=== PATIENT | female | born 1955 | race Caucasian/White ===

== ENCOUNTER 2022-07-20 09:17 | Outpatient (CLI) | payer MEDICARE, SELFPAY ==
--- NOTE | ~2022-07-20 | XR_ITS ---
XR hip RT 2V w AP pelvis 07/20/2022 09:40 Indication: Idiopathic aseptic necrosis. Procedure: AP pelvis and 2 views right hip Comparison: No prior studies for comparison. Findings: There is mild osteoarthritis of the right hip. No fracture or traumatic malalignment. Pelvi c rings are intact. No significant soft tissue abnormality. No foreign bodies. Impression: 1: Mild osteoarthritis of the right hip. Reviewed, dictated and finalized at location A. Impression: 1: Mild osteoarthritis of the right hip.
--- NOTE | ~2022-07-20 | MR_ITS ---
MRI of the lumbar spine Clinical History: Back pain Technique: Axial T2-weighted images, and sagittal T1-weighted, T2-weighted, and T2 fat-sat images wer e acquired. Findings: There is no fracture or subluxation of the lumbar spine. Vertebral bodies maintain normal h eight and alignment. No suspicious bone marrow signal abnormality seen. At L1-L2, there is no disc bulge or herniation. No spinal canal stenosis or neural foraminal narrowin g. At L2-L3, there is no disc bulge or herniation. There is minimal facet arthropathy. No spinal canal s tenosis or neural foraminal narrowing. At L3-L4, there is mild disc bulge and minimal facet arthropathy. No spinal canal stenosis or neural foraminal narrowing. At L4-L5, there is minimal disc bulge. No spinal canal stenosis or neural foraminal narrowing. At L5-S1, there is advanced degenerative disc narrowing. There is minimal disc bulge and minimal face t arthropathy. No spinal canal stenosis. There is mild bilateral neural foraminal narrowing, left wor se than right. Paravertebral soft tissues are unremarkable aside from sacral Tarlov cysts. Impression: Minimal degenerative spondylosis, as detailed above. Reviewed, dictated and finalized at location M. Impression: Minimal degenerative spondylosis, as detailed above.
--- NOTE | ~2022-07-20 | MR_ITS ---
MRI of the cervical spine Clinical History: Pain Technique: Axial T2-weighted and gradient images, and sagittal T1-weighted, T2-weighted, and STIR steve ges were acquired. Findings: No fracture identified. Minimal grade 1 anterolisthesis of C3 over C4 noted. No suspicious bone marrow signal abnormality seen. At C2-C3, there is no disc bulge or herniation. No spinal canal stenosis, cord compression, or neural foraminal narrowing. At C3-C4, there is no significant disc bulge or herniation. No spinal canal stenosis, cord compressio n, or definite neural foraminal narrowing. At C4-C5, there is minimal disc ossify complex. There is no anastacia spinal canal stenosis, cord andreina portia, or neural foraminal narrowing. At C5-C6, there is advanced degenerative disc narrowing with mild disc osteophyte complex. No anastacia s sergey canal stenosis or cord compression. There is mild right neural foraminal narrowing. Left neural foramen probably preserved. At C6-C7, there is advanced degenerative disc narrowing. There is mild disc ossify complex. There is no spinal canal stenosis or cord compression. There is probable mild right neural foraminal narrowing . Left neural foramen preserved. No abnormal signal seen in the spinal cord. Paravertebral soft tissues are unremarkable. Impression: Mild diffuse degenerative spondylosis in the cervical spine. Minimal grade 1 anterolisthesis of C3 over C4. Reviewed, dictated and finalized at [facility]. Impression: Mild diffuse degenerative spondylosis in the cervical spine. Minimal grade 1 anterolisthesis of C3 over C4.
== END 2022-07-20 09:18 | disposition home or self-care (01) ==
PROVIDERS: PCP Family Medicine; Visit Provider Family Medicine
DX: M47.892 Other spondylosis, cervical region (principal); M47.896 Other spondylosis, lumbar region; M16.11 Unilateral primary osteoarthritis, right hip
CPT/HCPCS: 72141; 72148; 73502

== ENCOUNTER 2023-01-20 13:13 | Outpatient (CLI) | payer MEDICARE, SELFPAY ==
--- NOTE | ~2023-01-20 | MM_ITS ---
EXAMINATION: MM screening michelle BI w mary HISTORY: Screening TECHNIQUE: Craniocaudal and mediolateral oblique 3-D tomosynthesis images were obtained and synthetic 2-D images were generated. CAD analysis was submitted and interpreted. COMPARISON: 01/20/2018 BREAST PARENCHYMAL COMPOSITION: The breasts are extremely dense, which lowers the sensitivity of mamm ography FINDINGS: There is no evidence of suspicious mass, calcification, or architectural distortion to sugg est malignancy in either breast. There has been no suspicious interval change. IMPRESSION: 1. No mammographic evidence of malignancy. 2. Recommend routine screening mammography in one year. BI-RADS Category 1: Negative Reviewed, dictated and finalized at location A.
== END 2023-01-20 13:14 | disposition home or self-care (01) ==
PROVIDERS: PCP Family Medicine; Visit Provider Nurse Practitioner Family
DX: Z12.31 Encounter for screening mammogram for malignant neoplasm of breast (principal)
CPT/HCPCS: 77063; 77067

== ENCOUNTER 2025-03-16 15:34 | Emergency (ER) | payer OTHER, SELFPAY ==
--- NOTE | 2025-03-16 15:34 | ED.SKABFB ---
HPI - Skin/Abscess/Foreign Bdy General Chief complaint: Skin/Abscess/Foreign Body Stated complaint: Rash Time Seen by Provider: 03/16/25 15:34 Source: patient Mode of arrival: ambulatory Limitations: no limitations History of Present Illness HPI narrative: Gina is a 69 year old female patient presenting to the clinic today with c/o a rash x 3days. She reports rash is itchy and jackson when she scratches it. She has sporadic areas on her upper and lower bilateral back. As well as on her hands. No changes in environment, soaps, shampoos, detergents, lotions, foods, or medications. No one else at home has this rash. Rash is only painful if she scratches it. Denies any fevers, chills, body aches. No URI symptoms. Related Data Allergies Allergy/AdvReac Type Severity Reaction Status Date / Time No Known Allergies Allergy Verified 03/16/25 15:43 Review of Systems Review of Systems: Pertinent positives per HPI. Patient denies any fever, chills, headache, visual changes, dizziness, cough, runny nose, sore throat, shortness of breath, chest pain, palpitations, nausea, vomiting, diarrhea, constipation, abdominal pain, or any urinary issues. [facility] Family History Family History Mother Diabetes mellitus Family history of atrial fibrillation Father Family history of cardiac disorder Social History Social History Smoking status: Former smoker Alcohol intake: current Lack of Transportation: No Lack of Food: Never True Current Housing: I Have Housing Concerned About Future Housing: No Difficulty Paying Gas/Electric Bills: No Difficulty Paying for Meds: No Currently Unemployed: No Education: High School Diploma/GED Difficulty w/ Childcare or Family Care: No Comments At the time of my signature, I reviewed and agree with the nursing past medical, surgical, social, and family history. There is no relevant family history pertinent to the patient complaint. Exam Narrative: General: Well-developed, well nourished, in no apparent distress Head: Normocephalic, atraumatic. Cardio: Regular rate and rhythm, s1 and s2 normal, no murmur appreciated. Resp: Clear to auscultation bilaterally, no rhonchi, rales, wheezing or rubs. Integumentary: [place], warm, and dry, red, raised, papular sporadic itchy rash to bilateral upper back and lower back as well as bilateral hands. No drainage. Course Course Emergency Course: Portions of this record may have been created with voice recognition software. Level of Care: Express Care Visit Vital Signs Vital signs: Vital Signs Temperature 36.7 C 03/16/25 15:42 Pulse Rate 97 03/16/25 15:42 Respiratory Rate 18 03/16/25 15:42 Blood Pressure 171/92 H 03/16/25 15:42 Pulse Oximetry 97 03/16/25 15:42 Oxygen Delivery Room Air 03/16/25 15:42 Temperature 36.7 C 03/16/25 15:42 Pulse Rate 97 03/16/25 15:42 Respiratory Rate 18 03/16/25 15:42 Blood Pressure 171/92 H 03/16/25 15:42 Pulse Oximetry 97 03/16/25 15:42 Oxygen Delivery Room Air 03/16/25 15:42 Vital signs reviewed MDM - Skin/Abscess/Foreign Bdy MDM Narrative Medical decision making narrative: At the time of visit patient is resting comfortably on the exam table. Patient appears to be nontoxic. C/o a rash x 3days. She reports rash is itchy and jackson when she scratches it. She has sporadic areas on her upper and lower bilateral back. As well as on her hands. No changes in environment, soaps, shampoos, detergents, lotions, foods, or medications. No one else at home has this rash. Rash is only painful if she scratches it. Denies any fevers, chills, body aches. No URI symptoms. On exam patient has a red raised papular rash sporadic on upper and lower bilateral back and on bilateral hands. Plan: I suspect patient has dermatitis. Prescription for triamcinolone cream and prednisone was sent to the pharmacy. Supportive measures were discussed with the patient and they voiced understanding discharge instructions and agrees to treatment plan. Return precautions reviewed Differential Diagnosis Differential diagnosis: Likely abscess of skin or subcutaneous tissue, viral exanthem, dermatophytosis, urticaria, herpes zoster, allergic reaction to drug, cellulitis, eczema, insect bites, impetigo and contact dermatitis Discharge Plan Discharge Clinical Impression: Dermatitis Patient Disposition: Home Condition: Stable Instructions: Antibiotic Form, Dermatitis (ED) Additional Instructions: Apply triamcinolone cream as directed Take prednisone as directed Avoid hot showers Avoid scratching as this can cause a secondary infection May take benadryl 25-50mg every 6 hours as needed for itching. Follow up with your PCP in 3-5 days if symptoms persist or sooner if they worsen Go to the Emergency Room if symptoms worsen- fever, rash spreading with treatment , shortness of breath, tongue swelling, drooling, or chest pain Patient Language: Montenegrin Prescriptions: New prednisone 20 mg tablet 40 mg PO DAILY 5 Days Qty: 10 0RF triamcinolone acetonide 0.1 % cream 1 applic topical BID 7 Days Qty: 30 0RF No Action simvastatin 20 mg tablet 20 mg PO DAILY Qty: 90 1RF omeprazole 20 mg capsule,delayed release(DR/EC) 20 mg PO DAILY Qty: 100 1RF Follow-up/Referrals: Ben Allan MD [Primary Care Provider, [facility]] Time of Disposition: 15:49 Quality NIHSS Nursing Documentation ED NIHSS nursing documentation: reviewed/agree
--- OUTSIDE RECORDS SUMMARY | 2025-03-16 15:38 | XMS_ITS | Clinical Summary ---
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 Name Role Phone Ben Allan MD Primary Care Provider [phone] Allergies No known active allergies Medications omeprazole (PriLOSEC) 20 mg capsule 01/15/2020 Active Active Problems No known active problems Social History Tobacco Use Types Packs/Day Years Used Date Smoking Tobacco: Some Days Smokeless Tobacco: Never Personal Safety Answer Date Recorded Getting School Help Needed Not on file 07/18 Comments Unknown Sex and Gender Information Value Date Recorded Sex Assigned at Not on file 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
--- OUTSIDE RECORDS SUMMARY | 2025-03-16 15:38 | XMS_ITS | Clinical Summary ---
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 Gender Identity Not on file Sexual Orientation Not on file Plan of Treatment Health Maintenance Due Date Last Done Comments DTAP/TDAP/TD VACCINES (1 - Tdap) 1973 BREAST CANCER SCREENING 1994 COLORECTAL SCREENING 11/10/1999 Colorectal Cancer Screening 11/10/1999 FIT-DNA Q 3 years 11/10/1999 FIT/FOBT Q 1 year 11/10/1999 Flex Sig/CT Colonography Q 5 years 11/10/1999 PNEUMOCOCCAL VACCINE 50+ YEARS (1 of 1 - PCV) 11/10/19 05 ZOSTER VACCINE (1 of 2) 2004 OSTEOPOROSIS SCREENING 11/10/2019 INFLUENZA VACCINE (#1) 2024 RSV VACCINE (60+ or ) (1 - 1-dose 75+ series) 2029 Insurance [facility] [employer] PPO [id number] Care Teams Hat Former Relationship Specialty Start Date End Date Ben Allan MD PCP - General Family Practice 06/02/13
[2025-03-16 15:42] VITALS: BP 171/92; PULSE 97; RESP 18; TEMP 36.7; O2SAT 97
== END 2025-03-16 15:55 | disposition home or self-care (01) ==
PROVIDERS: Emergency Provider Nurse Practitioner Family; PCP Family Medicine
DX: L30.9 Dermatitis, unspecified (principal); E78.00 Pure hypercholesterolemia, unspecified; Z87.891 Personal history of nicotine dependence
CPT/HCPCS: 99213; G0463

== ENCOUNTER 2025-03-21 13:34 | Outpatient (CLI) | payer OTHER, SELFPAY ==
--- NOTE | ~2025-03-21 | MM_ITS ---
EXAMINATION: MM screening michelle BI w mary HISTORY: Screening TECHNIQUE: Craniocaudal and mediolateral oblique 3-D tomosynthesis images were obtained and synthetic 2-D images were generated. CAD analysis was submitted and interpreted. COMPARISON: Comparison to multiple prior studies sequentially, with oldest reviewed study dated , 01/15/2012 BREAST PARENCHYMAL COMPOSITION: Dense: The breasts are extremely dense, which lowers the sensitivity of mammography. FINDINGS: There is no evidence of suspicious mass, calcification, or architectural distortion to suggest malignancy in either breast. IMPRESSION: 1. No mammographic evidence of malignancy. 2. Recommend routine screening mammography in one year. BI-RADS Category 1: Negative Reviewed, dictated and finalized at location B. 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
== END 2025-03-21 13:35 | disposition home or self-care (01) ==
PROVIDERS: PCP Family Medicine; Visit Provider Family Medicine
DX: Z12.31 Encounter for screening mammogram for malignant neoplasm of breast (principal)
CPT/HCPCS: 77063; 77067

== ENCOUNTER 2025-04-12 13:39 | Outpatient (CLI) | payer OTHER, SELFPAY ==
--- NOTE | ~2025-04-12 | DEXA_ITS ---
Bone Density Report Name: ARANZA HOUGH Age: 69 Sex: Female Ethnicity: White Date of : 1955 Indication: postmenopausal; screening for osteoporosis; height loss; prior fracture; Referring Provider: GIO GALLO Study: Bone densitometry was performed. Exam Date: April 12, 2025 Accession number: [id number] Bone Density: Region BMD T-score Z-score Classification AP Spine(L1-L4) 0.635 -3.7 -1.6 Osteoporosis Femoral Neck (Left) 0.536 -2.8 -1.0 Osteoporosis Total Hip (Left) 0.620 -2.6 -1.1 Osteoporosis Femoral Neck (Right) 0.559 -2.6 -0.8 Osteoporosis Total Hip (Right) 0.683 -2.1 -0.6 Osteopenia Total Hip Mean 0.652 -2.4 -0.9 Osteopenia World Health Organization criteria for BMD impression classify patients as: Normal (T-score at or above -1.0), Osteopenia (T-score between -1.0 and -2.5), or Osteoporosis (T-score at or below -2.5). 10-year Fracture Risk: FRAX not reported because: Some T-score for Spine Total or Hip Total or Femoral Neck at or below -2.5 Clinical Information Provided by Patient: Has had a low trauma fracture Has used the following medications: Vitamin D, Calcium Patient maximum height was 67 Onset of menses at age 12 Number of children 0 Impression: The patient has established osteoporosis, based on the Total Spine T-score and the existence of a prior fracture. The patient has risk factors, including: previous fracture. Discussion: HIGH RISK OF FRACTURE. BONE DENSITY IS UNDESIRABLY LOW AT ONE OR MORE SKELETAL SITES, CONSISTENT WITH POSTMENOPAUSAL OSTEOPOROSIS. This patient's lowest T-score, in a patient who has previously fractured, meets the World Health Organization's (WHO) criteria for severe osteoporosis. In untreated patients, the risk of osteoporotic fracture increases approximately two-fold for each 1.0 SD decrease in T-score. Low bone density is not the only risk factor for fracture; also consider factors such as patient's age, frailty or poor health, risk of falling, risk of injury, previous osteoporotic fracture, family history of osteoporosis, cigarette smoking, low body weight, etc. Not everyone with low bone mineral density has osteoporosis; osteomalacia and other metabolic bone disorders should also be considered. Patients who have osteoporosis should be evaluated for specific diseases and conditions (secondary causes) that may cause or contribute to bone loss. The [place] Association of Clinical Endocrinologists (AACE) and National Osteoporosis Foundation (NOF) recommend pharmacologic intervention for all postmenopausal women whose T-score is in this range. The patient should follow a healthful lifestyle (good nutrition with adequate calcium and vitamin D, and appropriate weight-bearing exercise). Follow-Up: Consider a repeat BMD and Vertebral Fracture Assessment (VFA) exam in 2 years or sooner if medically necessary, to reassess this patient's status. Reported by: ÁLVARO on 04/12/2025 2:25:00 PM. Reviewed, dictated and finalized at location A.
== END 2025-04-12 13:40 | disposition home or self-care (01) ==
LOC: ANHFOHIMG 13:40
PROVIDERS: PCP Family Medicine; Visit Provider Family Medicine
DX: M81.0 Age-related osteoporosis without current pathological fracture (principal); M85.852 Other specified disorders of bone density and structure, left thigh; M85.851 Other specified disorders of bone density and structure, right thigh; Z78.0 Asymptomatic menopausal state
CPT/HCPCS: 77080